=== PATIENT | female | born 1960 | race Caucasian/White ===

== ENCOUNTER 2024-09-27 07:41 | Inpatient (IN) | payer BC ==
[~2024-09-27] VITALS: Ht 154.9 cm; Wt 73.9 kg
[2024-09-27] MEDS ORDERED: DICYCLOMINE 10 MG/5 ML ORAL SYR PO STA (07:50)
[2024-09-27] MEDS: DICYCLOMINE HCL 10MG CAPSULE PO SCH (08:17)
[2024-09-27] MEDS: MAGNESIUM/ALUMINUM HYDROXIDE/SIMETHICONE 30ML UDC PO STA (08:17)
[2024-09-27] MEDS: KETOROLAC 30MG/ML VIAL IV STA (08:18)
[2024-09-27 08:25] LABS: BASOPHILS % 0.6 % (0.0-2.0); DIFFERENTIAL COMMENT 0; EOSINOPHILS % 0.2 % (0.0-5.0); HEMATOCRIT. 41.6 % (36.0-48.0); HEMOGLOBIN. 13.8 g/dL (12.0-16.0); LYMPHOCYTES % 13.2 % (20.0-50.0); MEAN CORPUSCULAR HGB CONC 33.2 g/dL (31.0-37.0); MEAN CORPUSCULAR VOLUME 78.1 fL (81.0-99.0); MEAN PLATELET VOLUME 8.1 fl (7.4-10.4); PLATELET 332 x1000/uL (130-400); RED BLOOD CELL COUNT 5.32 mill/uL (4.2-5.4); WHITE BLOOD COUNT 7.5 x1000/uL (4.5-11.0)
[2024-09-27] MEDS: ONDANSETRON HCL 4MG/2ML INJ IV STA (08:26)
[2024-09-27 08:33] LABS: CHLORIDE 108 mEq/L (98-107); POTASSIUM 4.4 mEq/L (3.5-5.1); SODIUM 139 mEq/L (136-145)
[2024-09-27 08:34] LABS: CALCIUM 10.7 mg/dL (8.7-10.4); CARBON DIOXIDE 22 mEq/L (21-32)
[2024-09-27 08:38] LABS: PROTHROMBIN TIME 10.8 sec (9.6-11.0)
[2024-09-27 08:39] LABS: CREATININE 0.7 mg/dL (0.6-1.0); GLUCOSE 148 mg/dL (70-105); TROPONIN I HIGH SENSITIVITY 9 ng/L (3.0-34); UREA NITROGEN BLOOD 10 mg/dL (9-23)
[2024-09-27 08:40] LABS: ALANINE AMINOTRANSFERASE 16 IU/L (10-49)
[2024-09-27 08:41] LABS: ALBUMIN 4.4 g/dL (3.2-4.8); ASPARTATE AMINOTRANSFERASE 13 IU/L (<34); BILIRUBIN DIRECT 0.2 mg/dL (<=3.0); BILIRUBIN TOTAL 0.6 mg/dL (0.1-1.0); PROTEIN TOTAL 7.8 g/dL (6.0-8.3)
[2024-09-27 09:52] LABS: CLARITY URINE TURBID (CLEAR); COLOR URINE YELLOW (YELLOW); GLUCOSE URINE NEGATIVE (NEGATIVE); KETONES URINE NEGATIVE (NEGATIVE); LEUKOCYTE ESTERASE URINE NEGATIVE (NEGATIVE); NITRITE URINE NEGATIVE (NEGATIVE); OCCULT BLOOD URINE NEGATIVE (NEGATIVE); PH URINE 7.5 (4.5-8.0); PROTEIN URINE TRACE (NEGATIVE)
[2024-09-27 10:07] LABS: SQUAMOUS EPITHELIAL CELL URINE RARE /lpf (RARE/1+)
[2024-09-27 10:08] LABS: WBC URINE 0-2 /hpf (0-2)
[2024-09-27 10:09] LABS: AMORPHOUS SEDIMENT URINE 3+ /lpf; BACTERIA URINE 1+; RBC URINE 0-2 /hpf (0-2)
[2024-09-27] MEDS ORDERED: ACETAMINOPHEN 325MG TABLET PO PRN (11:30)
[2024-09-27] MEDS: ONDANSETRON HCL 4MG/2ML INJ IV PRN (11:59)
[2024-09-27 12:00] VITALS: BP 148/68; PULSE 56; RESP 18; TEMP 37
[2024-09-27 12:08] VITALS: BP 148/68; PULSE 56; RESP 18; TEMP 36.7; O2SAT 100
[2024-09-27] MEDS: KETOROLAC 15MG/ML VIAL IV PRN (12:23)
[2024-09-27 16:00] VITALS: BP 169/81; PULSE 52; RESP 15; TEMP 37.4; O2SAT 100
[2024-09-27] MEDS: METOCLOPRAMIDE HCL 10MG/2ML VIAL IV PRN (16:26)
[2024-09-27] MEDS: TRAMADOL 50MG TABLET PO PRN (17:23)
[2024-09-27 20:00] VITALS: BP 132/69; PULSE 58; RESP 18; TEMP 36.4; O2SAT 98
[2024-09-28] VITALS: BP 165/85; PULSE 59; RESP 18; TEMP 36.1; O2SAT 97
[2024-09-28 04:00] VITALS: BP 112/58; PULSE 63; RESP 18; TEMP 37; O2SAT 63
[2024-09-28 07:01] LABS: BASOPHILS % 0.5 % (0.0-2.0); DIFFERENTIAL COMMENT 0; EOSINOPHILS % 0.8 % (0.0-5.0); HEMOGLOBIN. 13.2 g/dL (12.0-16.0); LYMPHOCYTES % 23.7 % (20.0-50.0); MEAN CORPUSCULAR HEMOGLOBIN 25.8 pg (28.0-32.0); MEAN CORPUSCULAR VOLUME 78.3 fL (81.0-99.0); MEAN PLATELET VOLUME 8.2 fl (7.4-10.4); MONOCYTES % 11.6 % (2.0-8.0); NEUTROPHILS % 63.4 % (40.0-76.0); PLATELET 308 x1000/uL (130-400); RED BLOOD CELL COUNT 5.11 mill/uL (4.2-5.4); RED CELL DISTRIBUTION WIDTH 15.9 % (11.6-14.6); WHITE BLOOD COUNT 6.3 x1000/uL (4.5-11.0)
[2024-09-28 07:09] LABS: CHLORIDE 107 mEq/L (98-107); SODIUM 138 mEq/L (136-145)
[2024-09-28 07:10] LABS: CALCIUM 10.2 mg/dL (8.7-10.4); CARBON DIOXIDE 24 mEq/L (21-32)
[2024-09-28 07:15] LABS: CREATININE 0.6 mg/dL (0.6-1.0); GLUCOSE 121 mg/dL (70-105); UREA NITROGEN BLOOD 9 mg/dL (9-23)
[2024-09-28 08:00] VITALS: BP 97/57; PULSE 67; RESP 18; TEMP 36.8; O2SAT 99
[2024-09-28 12:00] VITALS: BP 118/64; PULSE 69; RESP 18; TEMP 36.8; O2SAT 98
[2024-09-28 16:00] VITALS: BP 114/66; PULSE 75; RESP 18; TEMP 36.6; O2SAT 100
[2024-09-28 20:00] VITALS: BP 130/80; PULSE 77; RESP 18; TEMP 36.7; O2SAT 97
[2024-09-29] VITALS: BP 119/81; PULSE 79; RESP 16; TEMP 36.6; O2SAT 98
[2024-09-29 04:00] VITALS: BP 126/87; PULSE 88; RESP 17; TEMP 36.4; O2SAT 98
[2024-09-29 08:00] VITALS: BP 118/79; PULSE 92; RESP 18; TEMP 36.5; O2SAT 99
[2024-09-29 11:46] VITALS: BP 119/79; PULSE 92; TEMP 97.7; O2SAT 99
[2024-09-29 12:00] VITALS: BP 124/80; PULSE 84; RESP 18; TEMP 36.6; O2SAT 98
== END 2024-09-29 13:21 | disposition home or self-care (01) | DRG 446 ==
LOC: ER 07:41 → 7EST 10:56 → EDBEDREQTM 10:58 → EDBEDREQ 10:58 → ENRESERV 11:06
PROVIDERS: ADMIT Internal Medicine; ATTEND Internal Medicine
DX: K80.10 Calculus of gallbladder with chronic cholecystitis without obstruction (principal); Z79.899 Other long term (current) drug therapy
CPT/HCPCS: 36415; 74018; 76705; 80048; 80076; 81003; 84484; 85025; 93005; 99285; J1885; J2405; J2765